=== PATIENT | male | born 1985 | race Caucasian/White ===

== ENCOUNTER 2024-11-16 20:01 | Outpatient (OUT) | payer BC, SELFPAY ==
--- OUTSIDE RECORDS SUMMARY | 2020-01-06 12:15 | XMS_ITS | Continuity of Care Document ---
Author Organization [facility] Address [address] [place] [address] Phone Care Team Providers Care Quality Auditor Name Role Phone DesiOnofre Andrade Unavailable Unavailable Procedures Procedure Date Covid Testing [facility] Results Test Name Date and Time Measure Units Reference Range Abnormal Flag Status Comments Panel Description: SARS-CoV-2, FRANCISCO Final SARS-Co V-2, FRANCISCO 2019 11:35:0 0 Detected Not Detected A Final This nucleic acid amplification test was developed and its performancecharacteristics determined by [employer]. Nucleic acidamplification tests include PCR and TMA. [...] anegative (not detected) result in this assay.Performed by:[employer] RTP (TG) Advance Directives Directive Yes / No Effective Date File Name No Information Encounters Encounter Description Practice Location Reason(s) For Visit Diagnoses Date Provider Providers Copied on Encounter [facility], [address] [place], [place], [id number], [place] tel:[phone] JENNIFER RADHA Encounter for screening for other viral diseases Juan Antonio Zapien. [address], [place], [id number], [place]. tel:[phone] Family History Family Member Type Diagnosis Age At Onset No Information Payers Payer name Insurance type Covered alliance party ID Liatjuni hongmarc(viral) Bladimir [id number] Social History Type Description Quantity Date Captured [...]
--- OUTSIDE RECORDS SUMMARY | 2024-11-16 20:04 | XMS_ITS | Clinical Summary ---
Author Organization [facility] Address [address] [place], [place] [id number] Care Team Providers Care Stock Unloader Name Role Phone Unavailable Primary Care Provider Unavailabl e Allergies No known active allergies Medications No known medications Social History Tobacco Use Types Packs/Day Years Used Date Smoking Tobacco: Never Assessed Sex and Gender Information Value Date Recorded Sex Assigned at Not on file Legal Sex Male 11:45 AM EST Gender Identity Not on file Sexual Orientation Not on file Last Filed Vital Signs Vital Sign Reading Time Taken Comments Blood Pressure - - Pulse - - Temperature 36.5 C (97.7 F) 03/23/2012 1:10 PM EST Respiratory Rate - - Oxygen Saturation - - Inhaled Oxygen Concentration - - Weight 76.2 kg (168 lb) 03/23/2012 1:10 PM EST Height 179 cm (5' 10.47 ) 03/23/2012 1:10 PM EST Body Mass Index 23.78 03/23/2012 1:10 PM EST Plan of Treatment Health Maintenance Due Date Last Done Comments Anxiety Screening 2001 Depression Screening 2001 HIV Screening 2001 Hepatitis C Screening 2001 DTaP,Tdap,Td Vaccine (1 - Tdap) 2002 Hepatitis B Vaccine (1 of 3 - 19+ 3-dose series) 03/15 HPV Vaccine (1 - 3-dose SCDM series) 2010 Lipid Screening 2018 Influenza Vaccine (#1) 2024 Insurance [employer]
== END 2024-11-16 20:02 | disposition home or self-care (01) ==
DX: G47.33 Obstructive sleep apnea (adult) (pediatric) (principal)
CPT/HCPCS: 95806; 95810

== ENCOUNTER 2025-01-10 19:54 | Outpatient (OUT) | payer BC, SELFPAY ==
--- OUTSIDE RECORDS SUMMARY | 2020-01-06 11:15 | XMS_ITS | Continuity of Care Document ---
Author Organization [facility] Address [address] [place] [address] Phone Care Team Providers Care Pan Greaser Name Role Phone DesiOnofre Andrade Unavailable Unavailable Procedures Procedure Date Covid Testing [facility] Results Test Name Date and Time Measure Units Reference Range Abnormal Flag Status Comments Panel Description: SARS-CoV-2, FRANCISCO Final SARS-Co V-2, FRANCISCO 2019 11:35:0 0 Detected Not Detected A Final This nucleic acid amplification test was developed and its performancecharacteristics determined by [employer]. Nucleic acidamplification tests include PCR and TMA. This test has not been FDAcleared or approved. This test has been authorized by FDA under anEmergency Use Authorization (EUA). This test is only authorized forthe duration of time the declaration that circumstances existjustifying the authorization of the emergency use of in vitrodiagnostic tests for detection of SARS-CoV-2 virus and/or diagnosisof COVID-19 infection under section 564(b)(1) of the Act, 21 U.S.C.360bbb-3(b) (1), unless the authorization is terminated or revokedsooner.When diagnostic testing is negative, the possibility of a falsenegative result should be considered in the context of a patient'srecent exposures and the presence of clinical signs and symptomsconsistent with COVID-19. An individual without symptoms of COVID-19and who is not shedding SARS-CoV-2 virus would expect to have anegative (not detected) result in this assay.Performed by:[employer] RT[facility] (TG) Advance Directives Directive Yes / No Effective Date File Name No Information Encounters Encounter Description Practice Location Reason(s) For Visit Diagnoses Date Provider Providers Copied on Encounter [facility], [address] [place], [place], [id number], [place] tel:[phone] JENNIFER RADHA Encounter for screening for other viral diseases Juan Antonio Zapien. [address], [place], [id number], [place]. tel:[phone] Family History Family Member Type Diagnosis Age At Onset No Information Payers Payer name Insurance type Covered democrat ID Liatjuni hongmarc(viral) Bladimir [id number] Social History Type Description Quantity Date Captured Comments Alcohol Use Details Unknown Caffeine Use Details Unknown Tobacco Use Status No Information Smoking Status No Information Sex Male Sexual Orientation Straight or heterosexual Gender Identity Male Chief Complaint And Reason For Visit No Information Reason For Referral Reason For Referral No Information History Of Present Illness Encounter Date Complaint History Of Prese nt Illness No Information Functional Status Date Functional Assessmen t No Information Instructions Date Instruction Additional Infor mation No Information Assessments Type Assessment Date assessment Encounter for screening for othe r viral diseases Patient Care Teams Name Effective Dates (start - stop) Status Members No Information
--- OUTSIDE RECORDS SUMMARY | 2020-01-06 11:15 | XMS_ITS | Continuity of Care Document ---
Author Organization [facility] Address [address] [place] [address] Phone Care Team Providers Care Assistant Corporate Controller Name Role Phone DesiOnofre Andrade Unavailable Unavailable Procedures Procedure Date Covid Testing [facility] Results Test Name Date and Time Measure Units Reference Range Abnormal Flag Status Comments Panel Description: SARS-CoV-2, FRANCISCO Final SARS-Co V-2, FRANCISCO 2019 11:35:0 0 Detected Not Detected A Final This nucleic acid amplification test was developed and its performancecharacteristics determined by [employer]. Nucleic acidamplification tests include PCR and TMA. [...] anegative (not detected) result in this assay.Performed by:[employer] RTP (TG) Advance Directives Directive Yes / No Effective Date File Name No Information Encounters Encounter Description Practice Location Reason(s) For Visit Diagnoses Date Provider Providers Copied on Encounter [facility], [address] [place], [place], [id number], [place] tel:[phone] JENNIFER RADHA Encounter for screening for other viral diseases Juan Antonio Zapien. [address] [place], [place], [id number], [place]. tel:[phone] Family History Family Member Type Diagnosis Age At Onset No Information Payers Payer name Insurance type Covered republican ID Liatjuni hongmarc(viral) Bladimir [id number] Social History Type Description Quantity Date Captured [...]
--- OUTSIDE RECORDS SUMMARY | 2020-01-06 11:15 | XMS_ITS | Continuity of Care Document ---
Author Organization [facility] Address [address] [place] [address] Phone Care Team Providers Care Hot Car Charger Name Role Phone DesiOnofre Andrade Unavailable Unavailable Procedures Procedure Date Covid Testing [facility] Results Test Name Date and Time Measure Units Reference Range Abnormal Flag Status Comments Panel Description: SARS-CoV-2, FRANCISCO Final SARS-Co V-2, FRANCISCO 2019 11:35:0 0 Detected Not Detected A Final This nucleic acid amplification test was developed and its performancecharacteristics determined by [employer]. Nucleic acidamplification tests include PCR and TMA. [...] anegative (not detected) result in this assay.Performed by:[employer] RT[facility] (TG) Advance Directives Directive Yes / No Effective Date File Name No Information Encounters Encounter Description Practice Location Reason(s) For Visit Diagnoses Date Provider Providers Copied on Encounter [facility], [address] [place], [place], [id number], [place] tel:[phone] JENNIFER RADHA Encounter for screening for other viral diseases Juan Antonio Zapien. [address] [place], [place], [id number], [place]. tel:[phone] Family History Family Member Type Diagnosis Age At Onset No Information Payers Payer name Insurance type Covered green party ID Liatjuni hongmarc(viral) Bladimir [id number] Social History Type Description Quantity Date Captured [...]
--- OUTSIDE RECORDS SUMMARY | 2020-01-06 11:15 | XMS_ITS | Continuity of Care Document ---
Author Organization [facility] Address [address] [place] [address] Phone Care Team Providers Care Metal Engineering Process Worker Name Role Phone DesiOnofre Andrade Unavailable Unavailable Procedures Procedure Date Covid Testing [facility] Results Test Name Date and Time Measure Units Reference Range Abnormal Flag Status Comments Panel Description: SARS-CoV-2, FRANCISCO Final SARS-Co V-2, FRANCISCO 2019 11:35:0 0 Detected Not Detected A Final This nucleic acid amplification test was developed and its performancecharacteristics determined by [employer]. Nucleic acidamplification tests include PCR and TMA. [...] anegative (not detected) result in this assay.Performed by:[employer] RTP (TG) Advance Directives Directive Yes / No Effective Date File Name No Information Encounters Encounter Description Practice Location Reason(s) For Visit Diagnoses Date Provider Providers Copied on Encounter [facility], [address] [place], [place], [id number], [place] tel:[phone] JENNIFER RADHA Encounter for screening for other viral diseases Juan Antonio Zapien. [address] [place], [place], [id number], [place]. tel:[phone] Family History Family Member Type Diagnosis Age At Onset No Information Payers Payer name Insurance type Covered constitution party ID Liatjuni hongmarc(viral) Bladimir [id number] Social History Type Description Quantity Date Captured [...]
--- OUTSIDE RECORDS SUMMARY | 2025-01-06 03:24 | XMS_ITS | Continuity of Care Document ---
Author Organization [facility] Address [address] [facility] [place] [address] Phone Care Team Providers Care Security Alarm Technician Name Role Phone Philly Caal DO Primary Care Provider Hoa Caldera DO Attending Provider Philly Caal DO Attending Provider Care Teams Patient Care Team Team Status: Active Member Role/Relationship Status Dates Philly Caal DO Primary Care Provider Active Patient Care Team Team Status: Active Member Role/Relationship Status Dates Philly Caal DO Primary Care Provider Active Start: November 16, 2024 Hoa Caldera DOAttending ProviderActiveStart: November 16, 2024 Patient Care Team Team Status: Inactive Member Role/Relationship Status Dates Philly Caal DO Primary Care Provider Active Start: January 06, 2025 End: January 06, 2025Philly Caal DOAttkin ProviderActiveStart: January 06, 2025 End: January 06, 2025 Chief Complaint and Reason for Visit Chief Complaint Admit Date awv January 06, 2025 7:51am Reason for Visit Admit Date Acid reflux January 06, 2025 7:51am Generalized anxiety disorder January 062024 7:51am Well adult January 06, 2025 7:51am Allergies, Adverse Reactions, Alerts Allergen Type Severity Reaction Last Updated Verified Status No Known Allergies Allergy Unknown January 06, 2025 7:57amYesActive Social History Smoking Status Status Start Date End Date Date of Observa tion Never smoked tobacco (finding) December 28, 2024 10:25am Observation Status Observation Response Date of Response Legal Sex [facility] (finding) [facility] Problems Active Problems Problem Diagnosis/Recorded Date Onset Date Stat us Generalized anxiety disorder October 24, 2023 7:18am Unknown Active Screening for cardiovascular condition July 29, 2023 8:54am Unknown Active Well adult July 29, 2023 11:48am Unknown Activ e Snoring October 24, 2023 7:15am Unknown Act deedee New onset headache February 03, 2024 8:15am Unknown Active New daily persistent headache February 03, 2024 8:15 am Unknown Active Acid reflux July 29, 2023 11:44am Unknown Activ e Chest pain July 29, 2023 8:54am Unknown Active Medications Medication Status Dose Units Route Directions Qty Days Refills S tart Date Stop Date End Date Reason(s) Instructions Adherence Hydroxyzine Pamoate (Vistari l) 25 mg capsule Discontinued 25 MG PO Four times phan ly as needed for anxiety 30 0Sept2023 11:00pmDecember 2023 7:53amOmeprazole 40 mg capsule,delayed release(DR/EC)Jdfcebpllitp25WWNPJayqq967Inhoffim 2nd, 2024 8:00amMarch 2024 8:45pmSertraline 50 mg tabletDiscontinued0.ROUTE.COMPLEX uary 2024 9:14amJuly 2024 12:32pmTAKE 1/2 TABLET BY MOUTH FOR 7 DAYS, THEN 1 TABLET EVERY DAYOmeprazole 40 mg capsule,delayed release(DR/EC) Mxnenhhdcyco80AAOPEjgnm947Yrxmf 2024 8:45pmNovember 2024 7:58am Sertraline 50 mg hcolkoUkrhzthmpnqy78NHVIRunrj719Kbcj 2024 12:32pmNovember 2024 7:57amSertraline (Zoloft) 50 mg yehtvaIjrsporpwgbx52NTAUtfleu15364 February 03, 2024 12:00amJanuary 2024 9:14am0.5 tab PO x 1 week then full tab dailyOmeprazole Magnesium (Prilosec Otc) 20 mg tablet,delayed release (DR/EC)Cgulcjejyuqr70ZAYDPczshJrir 2023 11:00pmJune 2023 9:20am Omeprazole 40 mg capsule,delayed release(DR/EC)Oewcfhsndjib42MLOYDwbpo080Cuts 2023 11:00pmDecember 2023 8:00amBuspirone 5 mg wkqaaqJicfta3KAQLLoorl wnggn580NgftbhwdJanuary 06, 2025 12:00amComplies with drug therapy Vital Signs Vital Reading Result Reference Range Collection Date/Time Height 70 [in_i] January 06, 2025 8:34cfBxstnz81.88 kgJanuary 06, 2025 8:02amBody Xyvawjdxpxr28.9 [degF]97.6-99.0January 06, 2025 8:02amHeart Rate70 /cvv03-249 January 06, 2025 8:02amOxygen saturation by Pulse xwadihtx43 %95-100January 06, 2025 8:02amBP Eyylhpxr909 mm[Hg]100-140January 06, 2025 8:02amBP Bnctyhcdz03 mm[Hg]60-100January 06, 2025 8:02amBMI (Body Mass Index)25.5 kg/h5WqvsivgsJanuary 06, 2025 8:02am Advance Directives Advance Directive Response Recorded Date/ Time Advance Directives No December 28, 2024 10:26am Insurance Providers Guarantor Natanael Arriaga , P [address] [facility] [address] Info.Home Phone: Payer Group Member ID Coverage Type Subscriber Relationship to Subscriber Effective Date Expiration Date Bladimir RODRIGUEZ/[facility] Id: [id number] Cullen Id: [id number] [facility] [address] Home Phone: Email: [email or web address] Encounters Encounter Location(s) Arrival/Admit Date Discharge/Departure Date Discharge/Departure Disposition Provider(s) Non-patient / Non-visit -[facility] 2024 11:59pm Britany Pascual [facility] 8:23amDischarged to home care or self care (routine discharge)Philly Caal DO Recent Diagnosis Onset Date Admit Date Acid reflux Unknown January 06 7:51am Generalized anxiety disorder Unknown Dec 7:51am Well adult Unknown January 06 7:51am Assessments Diagnosis Onset Date Resolution Status Admit Date [facility]am[facility]am[facility] 20[facility] 7:51am
--- OUTSIDE RECORDS SUMMARY | 2025-01-10 19:59 | XMS_ITS | Continuity of Care Document ---
Author Organization [facility] Address [address] [place] [address] Care Team Providers Care Sifter Operator Name Role Phone Unallocated, Noms Provider Primary Care Provi mary jo Encounters DateTypeDepartmentCare MevuUksqlpmkgah20/19/2025amboo flowsheet [facility] [address] [facility] [facility] [address] [place] [phone] Nancy Rand TOOL CHECKER-SUPERVISOR LIQUID YEAST 10/12/20242791Rjkogz67/19/2025 11:10 AM EDTOffice Visit [facility] [address] [facility] [place] [address] Nancy Rand, TOOL CHECKER-STACI Melanocytic nevus of trunk (Primary Dx); Dermatofibroma; Actinic htvbmziiv56/06/3194Zpduru57/06/2023 10:55 AM ESTOffice Visit [facility] [address] [facility] [address] [address] [place] [address] Nancy Rand TOOL CHECKER-SUPERVISOR LIQUID YEAST Actinic cjnwetluq26/24/2023bstract [facility] [address] [facility] [place] [address] Nancy Rand TOOL CHECKER-SUPERVISOR LIQUID YEAST 03/18/2017eCW Legacy Documentation [facility] 03/12/2017eCW Legacy Documentation [facility] 03/11/2017Legacy Non Patient Presenting [facility] Chencho Villarreal PA 03/04/2017eCW Legacy Documentation [facility] Allergies No known active allergies Medications MedicationSigDispense QuantityRefillsLast FilledStart DateEnd DateStatus omeprazole (PriLOSEC) [address] capsule Take 40 mg by mouth Daily5Active sertraline (Zoloft) 50 MG tablet Take 50 mg by mouth Daily5Active Active Problems No known active problems Family History Medical HistoryRelationNameCommentsNo Known ProblemsDaughter2 daughters, healthy HyperlipidemiaFatherRelationNameStatusCommentsDaughterAliveFatherAliveMother AliveOtherSpouseAlive Social History Tobacco UseTypesPacks/DayYears UsedDateSmoking Tobacco: Never AssessedAUDIT-C AnswerDate RecordedQ1: How often do you have a drink containing alcohol?2-4 times a month12/17/2022verage Number of DrinksNot on file12/17/2022Frequency of Binge DrinkingNot on file12/17/2022Sex and Gender InformationValueDate Recorded Sex Assigned at BirthNot on fileLegal VieDpvy8305/08/2022 7:29 PM EDTGender IdentityNot on fileSexual OrientationNot on file Last Filed Vital Signs Vital SignReadingTime TakenCommentsBlood Uuphcdic901/7802/20/2018 12:00 PM EST Pulse--Temperature--Respiratory Rate--Oxygen Saturation--Inhaled Oxygen Concentration--Qsjavf11.3 kg (172 lb 9.6 oz)02/20/2018 12:00 PM MHGSouqfm897.3 cm (5' 9 )02/20/2018 12:00 PM ESTBody Mass Index25.4902/20/2018 12:00 PM EST Plan of Treatment DateTypeDepartmentCare Team (Latest Contact Info)Wlkoqfhknji08/20/2026 8:35 AM EDTOffice Visit [facility] [address] [place] [phone] Nancy Rand APRN-SUPERVISOR LIQUID YEAST [address] [place] [address] Procedures Procedure NamePriorityDate/TimeAssociated DiagnosisCommentsCRYOTHERAPY SKIN ATOHYSVxkcyfh09/19/2025 11:16 AM EDT Actinic keratosis CRYOTHERAPY SKIN JNHKCTMxvzoqq59/06/2023 11:05 AM EST Actinic keratosis OUTTVTNKHTOXJtiqfgl36/28/2018 PASAsfwauv62/28/2018 KWAPwiejwi95/28/2018 COMPREHENSIVE METABOLIC XVPLSSohynyp85/28/2018 X RAY : SHOULDER, LEFT 7NAuzyroi27/09/2018 12:00 PM EST Pain in right shoulder Pain in left shoulder Other chronic pain X RAY : SHOULDER, RIGHT 3ZMhldyus79/09/2018 12:00 PM EST Pain in right shoulder Pain in left shoulder Other chronic pain Results * Cryotherapy, skin lesion (10/12/2024 11:16 AM EDT) Narrative Authorizing ProviderResult TypeResult StatusNatalie A Felter TOOL CHECKER-CNPDERM PROCEDURE ORDERABLESFinal Result * Cryotherapy, skin lesion (12/30/2022 11:05 AM EST) Narrative Authorizing ProviderResult TypeResult StatusNatalie A Felter TOOL CHECKER-CNPDERM PROCEDURE ORDERABLESFinal Result * TESTOSTERONE (02/20/2018)ComponentValueRef RangeTest MethodAnalysis Time Performed AtPathologist PgrfzvpawWGJNHXVBAKTA483.69677.00 - 836.00[facility] LABSpecimen (Source)Anatomical Location / LateralityCollection Method / VolumeCollection TimeReceived Time02/20/2018 Narrative Authorizing ProviderResult TypeResult StatusClarence Russell DOECW LABSFinal ResultPerforming OrganizationAddressCity/State/ZIP CodePhone Number [facility] * CBC (02/20/2018)ComponentValueRef RangeTest MethodAnalysis TimePerformed At Pathologist SignatureWBC6.13.8 - 11.0[facility] LABRED BLOOD COUNT 4.854.20 - 5.80[facility] OURQOW20.913.2 - 17.1[facility] WHTNBGLJSYQVC28.438.5 - 50.0[facility] GPPRWK5883 - 100[facility] LABMEAN CORPUSCULAR WNIVYZLMRK45.727.0 - 33.0[facility] MEAN CORPUSCULAR HGB CONC32.832.0 - 36.0[facility] LABRDW-SD42.537.0 - 50.0[facility] LABRDW-CV12.111.0 - 15.0[facility] FRTEIUYT870287 - 400[facility] LABMPV9.207.50 - 12.50[facility] EXTER[facility] LABSpecimen (Source)Anatomical Location / LateralityCollection Method / VolumeCollection TimeReceived Time02/20/2018 Narrative Authorizing ProviderResult TypeResult StatusGeortiki Gordon Drew [facility] BLOOD ORDERABLESFinal ResultPerforming OrganizationAddressty/State/ZIP CodePhone Number [facility] * TSH (02/20/2018)ComponentValueRef RangeTest MethodAnalysis TimePerformed At Pathologist [facility] hospital W/OUT REFLEX2.1900.400 - 4.500[facility]TER[facility] LABSpecimen (Source)Anatomical Location / LateralityCollection Method / Volume Collection TimeReceived Time02/20/2018 Narrative Authorizing ProviderResult TypeResult StatusGeortiki Gordon Drew [facility] BLOOD ORDERABLESFinal ResultPerforming OrganizationAddressty/State/ZIP CodePhone Number [facility] * (ABNORMAL) Comprehensive metabolic panel (02/20/2018)ComponentValueRef Range Test MethodAnalysis TimePerformed AtPathologist OqiuukmstLHW9025 - 99[facility] EXTER[facility] LABComment: For FASTING Glucose --- ADA reference ranges: ? Normal ?65-99 mg/dl ? Prediabetes ? 100-125 Diabetes >/= 126 BLOOD UREA YGUAYNCH017 - 25[facility] LABCREA0.90.7 - 1.4[facility] LABEST GLOM FILT XMSHYTEU112>60[facility] LABEGFR-NON AF RJRLPXXR70>60[facility] LABBUN/CMVR520 - 22[facility] TBIL0.630.30 - 1.20[facility] EXTERNAL LABComment:Reference range change 01/10/2017. Prior reference range 0.2-1.2 mg/dL.SVE4013 - 40[facility] EXTERNAL LABComment:Reference range change 01/10/2017. Prior range, F 12-34 U/L, M 12-50 U/L.SGPT/KCY288 - 46[facility] EXTER[facility] LABComment:Reference range change 01/10/17. Prior reference range F 9-52 U/L, M 21-72 U/L.LDIC8922 - 129[facility] EXTERNAL LABComment:Female reference change 01/10/2017. Prior female reference range 35-104 U/L.TOTAL MVPRTPO07.18.6 - 10.2[facility] LABNA (SODIUM)729872 - 146[facility] LABPOTASSIUM4.43.5 - 5.5[facility] YITXM06422 - 107[facility] XIRHX86341 - 31[facility] AELRIJY42(H)8 - 16[facility] LABTOTAL PROTEIN7.56.1 - 8.1[facility] LABALBUMIN LEVEL5.13.6 - 5.1[facility] LABGLOB2.41.9 - 3.7[facility] LABA/G2.11.0 - 2.5[facility] EXTER[facility] LABSpecimen (Source)Anatomical Location / LateralityCollection Method / VolumeCollection TimeReceived Time02/20/2018 Narrative Authorizing ProviderResult TypeResult StatusClarence WOMACKAB BLOOD ORDERABLESFinal ResultPerforming OrganizationAddressCity/State/ZIP CodePhone Number [facility] * X RAY : SHOULDER, LEFT 2V (03/04/2017 12:00 PM EST)Anatomical RegionLaterality ModalityRadiographic ImagingSpecimen (Source)Anatomical Location / Laterality Collection Method / VolumeCollection TimeReceived Time03/04/2017 12:00 PM EST Narrative 03/04/2017 12:00 PM EST PERFORMED AT [facility] LOCATION:[id number] Procedure Note CONVERSION, GENERIC - 07/10/2022 PERFORMED AT [facility] LOCATION:[id number] Authorizing ProviderResult TypeResult StatusMatthew J Villarreal PAIMG XR PROCEDURES Final Result * X RAY : SHOULDER, RIGHT 2V (03/04/2017 12:00 PM EST)Anatomical Region LateralityModalityRadiographic ImagingSpecimen (Source)Anatomical Location / LateralityCollection Method / VolumeCollection TimeReceived Time03/04/2017 12:00 PM EST Narrative 03/04/2017 12:00 PM EST PERFORMED AT [facility] LOCATION:[id number] Procedure Note CONVERSION, GENERIC - 07/10/2022 PERFORMED AT [facility] LOCATION:[id number] Authorizing ProviderResult TypeResult StatusMattdylan Peg Villarreal PAIMG XR PROCEDURES Final Result Visit Diagnoses DiagnosisStart Date Actinic keratosis 12/30/2022 Dermatofibroma Benign neoplasm of skin, site unspecified 10/12/2024 Melanocytic nevus of trunk Benign neoplasm of skin of trunk, except scrotum 10/12/2024 Actinic keratosis 10/12/2024 Care Teams Team MemberRelationshipSpecialtyStart DateEnd Date Unallocated, Noms MD [address] [place] [address] PCP - GeneralFamily Ohcaxnvg05/6/25
--- OUTSIDE RECORDS SUMMARY | 2025-01-10 20:00 | XMS_ITS | Clinical Summary ---
Author Organization [facility] Address [address] [place] [address] Phone Care Team Providers Care Didactic Instructor Name Role Phone Unavailable Primary Care Provider Unavailabl e Social History Tobacco UseTypesPacks/DayYears UsedDateSmoking Tobacco: Never AssessedSex and Gender InformationValueDate RecordedSex Assigned at BirthNot on fileLegal Sex Male01/18/2022 11:10 PM ESTGender IdentityNot on fileSexual OrientationNot on file Plan of Treatment Health MaintenanceDue DateLast DoneCommentsHIV Zpuisgusg17/20/1984Lipid Panel 1983Yearly Adult Tecbxosh04/20/1984MMR Vaccines (1 of 1 - Standard series) 1984Hepatitis C Hbjcsfsjg85/20/2002Hepatitis B Vaccines (1 of 3 - 19+ 3- dose series)2002DTaP/Tdap/Td Vaccines (1 - Tdap)2005HPV Vaccines (1 - 3-dose standard series)2010Influenza Vaccine (#1)2024OVID-19 Vaccine ( - 2024- season)2024Zoster Vaccines (1 of 2)2033HIB VaccinesAged OutNo longer eligible based on patient's age to complete this topic Hepatitis A VaccinesAged OutNo longer eligible based on patient's age to complete this topicIPV VaccinesAged OutNo longer eligible based on patient's age to complete this topicMeningococcal VaccineAged OutNo longer eligible based on patient's age to complete this topicPneumococcal Vaccine: Pediatrics and At-Risk Adult PatientsAged OutNo longer eligible based on patient's age to complete this topicRotavirus VaccinesAged OutNo longer eligible based on patient's age to complete this topic Insurance * Guarantor: David Ward TypeRelation to PatientDate of BirthPhone Billing AddressPersonal/RujdgwYinh33/20/1986 [address] [place] [address] MemberSubscriberPlan / Payer (Effective 2022-Present)Name:Natanael Ward Member ID:[id number] Relation to Subscriber:SpouseName:EDLORNA Subscriber ID:[id number] Date of :1982 (Home) Address: [address] [place] [address] Payer ID:[id number] (NAIC) Type:Not on file Address: [id number] [place] [phone]
--- OUTSIDE RECORDS SUMMARY | 2025-01-10 20:00 | XMS_ITS | Clinical Summary ---
Author Organization [facility] Address [address] [place] [id number] Care Team Providers Care Systems Integration Engineer Name Role Phone Unavailable Primary Care Provider Unavailabl e Allergies No known active allergies Medications No known medications Social History Tobacco UseTypesPacks/DayYears UsedDateSmoking Tobacco: Never AssessedSex and Gender InformationValueDate RecordedSex Assigned at BirthNot on fileLegal Sex Male02/13/2012 11:45 AM ESTGender IdentityNot on fileSexual OrientationNot on file Last Filed Vital Signs Vital SignReadingTime TakenCommentsBlood Pressure--Pulse--Xertwzqngbv33.5 ??C (97.7 ??F)03/23/2012 1:10 PM ESTRespiratory Rate--Oxygen Saturation--Inhaled Oxygen Concentration--Bybufb24.2 kg (168 lb)03/23/2012 1:10 PM UFWJfklbs939 cm (5' 10.47 )03/23/2012 1:10 PM ESTBody Mass Index23.78003/23/2012 1:10 PM EST Plan of Treatment Health MaintenanceDue DateLast DoneCommentsAnxiety Jzpikiyze15/20/2002Depression Xebluypdd20/20/2002HIV Ktqnkzknk53/20/2002Hepatitis C Rwgrevvtt57/20/2002 DTaP,Tdap,Td Vaccine (1 - Tdap)2002Hepatitis B Vaccine (1 of 3 - 19+ 3- dose series)2002HPV Vaccine (1 - 3-dose SCDM series)2010Lipid Svzyruyrn25/20/2019Covid-19 Vaccine ( - 2024-26 season)2024Influenza Vaccine (#1)2024 Insurance
== END 2025-01-10 19:55 | disposition home or self-care (01) ==
DX: G47.33 Obstructive sleep apnea (adult) (pediatric) (principal)
CPT/HCPCS: 95811